=== PATIENT | female | born 1980 | race Caucasian/White ===

== ENCOUNTER 2022-08-10 06:28 | Day surgery (SDC) | payer SELFPAY ==
[2022-08-04 09:41] VITALS: BMI 22.8
[2022-08-10] MEDS ORDERED: DOCUSATE SODIUM 100 MG CAPSULE (FP) PO PRN (06:37)
[2022-08-10] MEDS ORDERED: HYDROmorphone HCl 2 MG/ML VIAL IVPB PRN (06:38)
[2022-08-10] MEDS ORDERED: EPINEPHrine/PF 1 MG/1 ML (1:1,000) AMPULE ONE (07:20)
[2022-08-10] MEDS ORDERED: LIDOCAINE HCL 1%, 10 MG/ML (20ML VIAL) ONE (07:20)
[2022-08-10] MEDS ORDERED: BACITRACIN ZINC 15 GM TUBE TOPICAL OINTMENT ONE (07:21)
[2022-08-10] MEDS ORDERED: BUPIVACAINE HCL/PF 2.5 MG/ML - 30 ML VIAL IJ ONE (07:33)
[2022-08-10] MEDS ORDERED: SCOPOLAMINE HYDROBROMIDE 1 PATCH PATCH.TD72 ONE (07:38)
[2022-08-10] MEDS ORDERED: MIDAZOLAM HCL 2 MG/2 ML SINGLE DOSE VIAL ONE (07:41)
[2022-08-10] MEDS ORDERED: PROPOFOL 40 ML ONE ×2 (07:41→11:37)
[2022-08-10] MEDS ORDERED: ROCURONIUM BROMIDE 50 MG/5 ML SYRINGE ONE (07:41)
[2022-08-10] MEDS ORDERED: LIDOCAINE HCL 2% JELLY 11 ML TP ONE (07:42)
[2022-08-10] MEDS ORDERED: ceFAZolin SODIUM 1 GM VIAL ONE ×2 (08:59→13:01)
[2022-08-10] MEDS ORDERED: DEXAMETHASONE SOD PHOSPHATE 4 MG/1 ML VIAL ONE (08:59)
[2022-08-10] MEDS ORDERED: KETOROLAC TROMETHAMINE 30 MG/1 ML VIAL ONE (08:59)
[2022-08-10] MEDS ORDERED: ONDANSETRON 4 MG/2 ML VIAL ONE (08:59)
[2022-08-10] MEDS ORDERED: BACITRACIN ZINC 15 GM TUBE TOPICAL OINTMENT TP ONE (10:54)
[2022-08-10] MEDS ORDERED: BUPIVACAINE HCL/PF 0.25% (2.5MG/ML) 10 ML VIAL IJ ONE ×2 (11:25→13:46)
[2022-08-10] MEDS ORDERED: HYDROmorphone HCL/PF 1 MG/ML VIAL ONE (13:02)
[2022-08-10] MEDS ORDERED: PROPOFOL 60 ML ONE (13:05)
[2022-08-10] MEDS ORDERED: PROMETHAZINE HCL 25 MG/1 ML VIAL IVPUSH PRN (14:20)
[2022-08-10] MEDS ORDERED: ONDANSETRON 4 MG/2 ML VIAL IVPUSH PRN (14:20)
[2022-08-10] MEDS ORDERED: oxyCODONE HCL 5 MG TABLET PO PRN ×2 (14:20)
[2022-08-10] MEDS: LACTATED RINGERS SOLUTION 1,000 ML IV SCH (16:22)
[2022-08-10] MEDS: CEFAZOLIN 1 GM in DEXTROSE 5%-WATER - 50 ML IVPB SCH ×2 (16:22→20:03)
[2022-08-10] MEDS: ONDANSETRON 4 MG/2 ML VIAL IVPUSH PRN (20:13)
[2022-08-10 20:20] VITALS: RESP 18
[2022-08-10] MEDS: oxyCODONE HCL 5 MG TABLET PO PRN (22:19)
[2022-08-10] MEDS: ACETAMINOPHEN 325 MG TABLET (FP) PO PRN (22:20)
[2022-08-11] MEDS: ONDANSETRON 4 MG/2 ML VIAL IVPUSH PRN (00:26)
[2022-08-11] MEDS: oxyCODONE HCL 5 MG TABLET PO PRN ×3 (01:59→07:24)
[2022-08-11] MEDS: ACETAMINOPHEN 325 MG TABLET (FP) PO PRN ×2 (02:00→06:43)
[2022-08-11] MEDS: CEFAZOLIN 1 GM in DEXTROSE 5%-WATER - 50 ML IVPB SCH (02:04)
[2022-08-11] MEDS ORDERED: oxyCODONE HCL 5 MG TABLET PO PRN (07:06)
[2022-08-11] MEDS: LACTATED RINGERS SOLUTION 1,000 ML IV SCH (07:24)
[2022-08-11] MEDS ORDERED: ENOXAPARIN NA (PORCINE) 40 MG/0.4 ML DISP.SYRIN SQ ONE (09:00)
[2022-08-11 09:16] VITALS: BP 101/51; PULSE 85; TEMP 99.2
== END 2022-08-11 12:55 | disposition home or self-care (01) ==
LOC: FASU 06:28 → FM/S 15:39 → FASU 08-11 12:55
PROVIDERS: ATTEND Surgery
PROC: 0W0F0ZZ Alteration of Abdominal Wall, Open Approach (ICD-10-PCS; principal; 2022-08-10 09:28)
DX: Z41.1 Encounter for cosmetic surgery (principal)
CPT/HCPCS: 81025; 88300-TC; 94760